=== PATIENT | female | born 1995 | race Caucasian/White ===

== ENCOUNTER 2025-03-25 09:33 | Emergency (ER) | payer MEDICAID, SELFPAY ==
[2025-03-25 09:55] VITALS: BP 127/91; PULSE 56; RESP 16; TEMP 36.2; BMI 28.7
--- NOTE | 2025-03-25 10:07 | ECG_ITS ---
Test Reason : withdrawal Blood Pressure : */* mmHG Vent. Rate : 68 BPM Atrial Rate : 68 BPM P-R Int : 146 ms QRS Dur : 90 ms QT Int : 420 ms P-R-T Axes : 44 24 17 degrees QTcB Int : 446 ms Normal sinus rhythm with sinus arrhythmia Cannot rule out Anterior infarct , age undetermined Abnormal ECG No previous ECGs available Referred By: Wendy Navarrete Electronically Signed By: KALANI ENG MD
--- NOTE | 2025-03-25 10:15 | ED.GENADULT ---
HPI - General Adult General Chief complaint: General Medical Stated complaint: withdrawls Time Seen by Provider: 03/25/25 10:07 Source: patient and old records reviewed Mode of arrival: ambulatory Limitations: no limitations History of Present Illness ED Provider: BRITTON HPI narrative: 29 yo female with PMH of IVDA and prior methadone use but has not been on it in years she notes last injected Tuesday. She wants to start back on MAT therapy. She has chills, body aches, mild nausea. She denies fevers, infections of injection sites, chest pain/dyspnea. No SI. She does not want detox. She was referred to the ED by our addiction medicine provider. complaint: withdrawal Onset (ago): day(s) (2) Radiation: non-radiation Severity: moderate Quality: aching Relieving factors: none Exacerbating factors: movement Associated symptoms: denies other symptoms Treatments prior to arrival: none Related Data Allergies Allergy/AdvReac Type Severity Reaction Status Date / Time Latex, Natural Rubber Allergy Rash Verified 03/25/25 09:56 Review of Systems Review of Systems: Constitutional : No Fever, pos Chills ENT/Mouth : No Ear Pain, No Hoarseness, No sore throat Eyes: No Eye Pain, No Swelling, No Redness, No Foreign Body Cardiovascular : No Chest Pain, No SOB Respiratory : No Cough, No Dyspnea Gastrointestinal : No Nausea, No Vomiting, No Diarrhea, No abdominal Pain Genitourinary : No Dysuria, No Hematuria Musculoskeletal : positive joint pain, pos Myalgias, No Joint Swelling Skin : No Skin lacerations, No rash Neuro : No Weakness, No Numbness, No Loss of Consciousness, No Dizziness, No Headache All other systems reviewed and are negative [facility] Past Medical History Attestation statement: The following information was validated with the patient. Source: old records reviewed Medical History Opiate use Social History Social History (Updated 03/25/25 @ 10:28 by Wendy Navarrete DO) Patient Tobacco Use Status: Never used Tobacco Advance Directives: No Advance Directives Information Provided: Yes Do you have a plan to hurt others: No Plan Physical Exam ED Vital Signs: Vital Signs - 24 hr 03/25/25 09:55 Temperature 97.2 F Pulse Rate 56 Respiratory Rate 16 Blood Pressure 127/91 H BMI result Body Mass Index 28.7 Appearance: Alert. Oriented X3. No acute distress. Eyes: Pupils equal, round and reactive to light. ENT: Pharynx normal. Neck: Normal inspection. Neck supple. CVS: Normal heart rate and rhythm. Pulses normal. Respiratory: No respiratory distress. Breath sounds normal. Abdomen: Soft and nontender. Skin: Skin warm and dry. Normal skin color. Normal skin turgor. Extremities: No lower extremity edema. No calf ttp Neuro: Oriented X 3. No motor deficit. No sensory deficit. CN2-12 intact Medications Administered Discontinued Medications Generic Name Dose Route Start Last Admin Trade Name Johnq PRN Reason Stop Dose Admin Methadone HCl 40 mg 03/25/25 10:07 03/25/25 10:24 Methadone Hcl 20 Mg/2 Ml Oral.Conc PO 03/25/25 10:08 40 mg ONCE ONE Administration Naloxone HCl 8 mg 03/25/25 10:16 03/25/25 10:24 Naloxone Hcl Nasal Take Home 4 Mg Michie NOSTRILALT 03/25/25 10:17 8 mg ONCE ONE Administration Medical Decision Making Medical Decision Making [facility] Narrative: 29 yo female wtih PMH of opiate use disorder here with c/o mild withdrawal and wants to start on methadone. She denies SI and has no medical complaints. She does not want detox. She overall looks well no active vomiting and not significantly restless plan to start methadone after labs and she will follow up with our addiction medicine team. Narcan ordered to go home with. Differential Diagnosis Differential Diagnoses: The differential diagnosis associated with the presentation includes opiate withdrawal Admission/Observation Consideration of admission/observation: Escalation of care including admission/observation considered feels much better stable for DC Consult Healthcare Provider Management of the patient was discussed with: Front Desk Agent Lab Data [facility] Lab Attestation statement: I reviewed the patient's lab results. 03/25/25 10:47 03/25/25 10:47 Labs: Lab Results 03/25/25 Range/Units 10:47 WBC 13.0 H (4.8-10.8) X10*3/uL RBC 4.92 (4.20-5.50) X10*6/uL Hgb 15.0 (12.0-16.0) g/dl Hct 42.7 (37.0-47.0) % MCV 86.8 (80.0-98.0) fL MCH 30.5 (27.0-33.0) pg MCHC 35.1 H (31.0-35.0) g/dl RDW 13.9 (11.0-16.0) % Plt Count 271 (160-400) X10*3/uL MPV 10.2 (9.4-12.3) fL Immature Gran % (Auto) 0.5 H (0.0-0.4) % Neut % (Auto) 84.0 H (45-73) % Lymph % (Auto) 10.5 L (20-40) % [place] % (Auto) 4.5 (2-11) % Eos % (Auto) 0.2 (0-4) % Baso % (Auto) 0.3 (0-2) % Lymph # (Auto) 1.4 (1.2-4.9) X10*3/uL [place] # (Auto) 0.6 (0.1-1.2) X10*3/uL Eos # (Auto) 0.0 (0.0-0.4) X10*3/uL Baso # (Auto) 0.0 (0.0-0.2) X10*3/uL Abs Immat Gran (auto) 0.06 H (0.00-0.03) X10*3/uL Absolute Neuts (auto) 10.9 H (2.0-8.3) x10*3/uL Absolute Nucleated RBC 0.000 (0.0-0.012) X10*3/uL Nucleated RBC % (auto) 0.0 (0.0-0.2) /100WBC Sodium 142 (135-145) mmol/L Potassium 3.6 (3.3-5.1) mmol/L Chloride 111 H (96-108) mmol/L Carbon Dioxide 22 (22-29) mmol/L Anion Gap 13 (12-20) BUN 7 L (9-16) mg/dL Creatinine 0.57 (0.5-1.4) mg/dL Estim Creat Clear Calc 126.8 Estimated GFR > 60 Random Glucose 112 (60-115) mg/dL Calcium 9.3 (8.4-10.2) mg/dL Magnesium 1.9 (1.6-2.6) mg/dL Independent Interpretation I performed an independent interpretation of an: EKG Interpretation: Rate: 68 Rhythm: NSR [place]: normal Normal P waves. Normal DANO. Normal QRS complex. ST T wave : normal no CÉSAR inverted t wave III qTC: 446 prior studies: no acute ischemia The study has been interpreted contemporaneously by me. . External Record Review External record reviewed: Outpatient record Prescription Management I considered prescription management with: Other Discharge Plan Discharge Clinical Impression: Opiate withdrawal Patient Disposition: Home, Self-Care Instructions: Opioid Withdrawal (ED), Opioid Use Disorder (ED) Additional Instructions: GIVEN 40MG METHADONE ON 03/25/25 AT [facility] EMERGENCY DEPARTMENT Opiate use disorder You were seen in our Emergency Department today for treatment of opiate use disorder. You may have been dosed with medication for opiate use disorder (MOUD) in the form of suboxone or methadone. You may experience feeling some withdrawal symptoms and this is normal. The? dose in the Emergency Department is a starting dose and meant to be titrated up once you follow up with a clinic. Please do not feel discouraged, it is a process. The nurse has reviewed with you where to follow up and what information to bring with you, to continue treatment. You also may have been given naloxone (narcan) to take home with you. This medication is used to potentially treat opiate overdose. If you decide you want to stop or cut down on how much you?re using, you can call or walk into our outpatient Addiction Treatment office: [facility] (M-F 9am-5p) [address] [place] [address], [phone] You may have been provided with safer injection?items, please take time to take care of YOU and your health. Use new supplies whenever possible to lessen the chances of infections and other illnesses.? ?If you need more supplies, please go [facility],? [address], [place] you can call or text to coordinate delivery of safer supplies. You were also provided a list of several treatment providers in the area.? If you experience any worsening symptoms you cannot control please return to the ED or call 911. Please follow up at your next appointment. Things to look out for are fevers, chest pain, shortness of breath, severe pain, dizziness, fainting or any other concerns. Print Language: Luxembourgish
[2025-03-25] MEDS: methADONE HCl 20 MG/2 ML ORAL.CONC 40 MG PO (10:24)
[2025-03-25] MEDS: Naloxone HCl Nasal TAKE HOME 4 MG SPRAY 8 MG NOSTRILALT (10:24)
[2025-03-25 10:51] LABS: MANUAL DIFF FLAG NO
[2025-03-25 10:52] LABS: Basophils Percent Auto 0.3 % (0-2); Eosinophils Percent Auto 0.2 % (0-4); Hematocrit 42.7 % (37.0-47.0); Imm Gran Abs Auto 0.06 X10*3/uL (0.00-0.03); Imm Gran Pct Auto 0.5 % (0.0-0.4); Lymphocytes Absolute Auto 1.4 X10*3/uL (1.2-4.9); Lymphocytes Percent Auto 10.5 % (20-40); Mean Corpuscular HGB Conc 35.1 g/dl (31.0-35.0); Mean Corpuscular Hemoglobin 30.5 pg (27.0-33.0); Mean Corpuscular Volume 86.8 fL (80.0-98.0); Mean Platelet Volume 10.2 fL (9.4-12.3); Monocytes Absolute Auto 0.6 X10*3/uL (0.1-1.2); Monocytes Percent Auto 4.5 % (2-11); Neutrophils Absolute Auto 10.9 x10*3/uL (2.0-8.3); Platelet Count 271 X10*3/uL (160-400); Red Blood Count 4.92 X10*6/uL (4.20-5.50); Red Cell Distribution Width 13.9 % (11.0-16.0)
[2025-03-25 11:12] LABS: Anion Gap 13 (12-20); Blood Urea Nitrogen 7 mg/dL (9-16); Calcium 9.3 mg/dL (8.4-10.2); Carbon Dioxide 22 mmol/L (22-29); Chloride 111 mmol/L (96-108); Creatinine Clr Calc Pharmacy 126.8; Estimated Glomerular Filt Rate > 60; Glucose Random 112 mg/dL (60-115); Magnesium 1.9 mg/dL (1.6-2.6); Potassium 3.6 mmol/L (3.3-5.1); Sodium 142 mmol/L (135-145)
[2025-03-25 11:33] VITALS: BP 127/91; PULSE 56; RESP 16; TEMP 36.2; O2SAT 98
[2025-03-25 11:53] LABS: HCG Quantitative < 2 mIU/mL
--- NOTE | 2025-03-25 12:10 | HO.ADDICT_ITS ---
History of Present Illness Date of Service: 03/25/2025 Chief Complaint: withdrawls Reason for Consult: OUD/acute withdrawal Sources of Information: patient interviewed HPI Narrative: Patient is a 29 year old female with history of OUD. She was visiting a patient at [facility], when she reported to this aligner typewriter that she was experiencing opiate withdrawal. T/w then escorted patient to ED for methadone initiation. She appeared diaphoretic and anxious. Reports last use was Tuesday/Tuesday Reports using 2-3 bundles of fentanyl daily Reports history of methadone--over a year ago. Review of Systems Constitutional: Reports as per HPI and Reports body ache(s) Diagnostics Vital Signs (24Hr): Vital Signs - 24 hr 03/25/25 09:55 03/25/25 11:33 Temperature 97.2 F 97.2 F Pulse Rate 56 56 Respiratory Rate 16 16 Blood Pressure 127/91 H 127/91 H Pulse Oximetry 98 BMI result Body Mass Index 28.7 Labs 03/25/25 10:47 03/25/25 10:47 Labs: Laboratory Results - last 48 hr 03/25/25 10:47 WBC 13.0 H RBC 4.92 Hgb 15.0 Hct 42.7 MCV 86.8 MCH 30.5 MCHC 35.1 H RDW 13.9 Plt Count 271 MPV 10.2 Immature Gran % (Auto) 0.5 H Neut % (Auto) 84.0 H Lymph % (Auto) 10.5 L [place] % (Auto) 4.5 Eos % (Auto) 0.2 Baso % (Auto) 0.3 Lymph # (Auto) 1.4 [place] # (Auto) 0.6 Eos # (Auto) 0.0 Baso # (Auto) 0.0 Abs Immat Gran (auto) 0.06 H Absolute Neuts (auto) 10.9 H Absolute Nucleated RBC 0.000 Nucleated RBC % (auto) 0.0 Sodium 142 Potassium 3.6 Chloride 111 H Carbon Dioxide 22 Anion Gap 13 BUN 7 L Creatinine 0.57 Estim Creat Clear Calc 126.8 Estimated GFR > 60 Random Glucose 112 Calcium 9.3 Magnesium 1.9 Beta HCG, Quant < 2 Mental Status Exam Mental Status Exam Level of Consciousness: Awake, Appropriate and Alert Medications Allergies Allergies Allergy/AdvReac Type Severity Reaction Status Date / Time Latex, Natural Rubber Allergy Rash Verified 03/25/25 09:56 Assessment & Plan Assessment & Plan (1) Opioid use disorder, severe, dependence: Status: Acute Code(s): F11.20 - Opioid dependence, uncomplicated Assessment and Plan: * methadone 40mg in ED * last dose letter provided to patient * Referral emailed to [facility] per patient request Total time managing care of this patient today __35__ minutes. PMFSH Past Medical History Medical History Opiate use Social History Social History (Updated 03/25/25 @ 10:28 by Wendy Navarrete DO) Patient Tobacco Use Status: Never used Tobacco Advance Directives: No Advance Directives Information Provided: Yes Do you have a plan to hurt others: No Plan
== END 2025-03-25 11:33 | disposition home or self-care (01) ==
PROVIDERS: Emergency Provider Emergency Medicine
DX: F11.23 Opioid dependence with withdrawal (principal); F19.10 Other psychoactive substance abuse, uncomplicated
CPT/HCPCS: 36415; 80048; 83735; 84702; 85025; 93005; 99283

== ENCOUNTER → 2025-03-25 10:07 | Outpatient (BNV) | payer MEDICAID, SELFPAY | PROVIDERS: Emergency Provider Emergency Medicine; Visit Provider Internal Medicine Cardiovascular Disease | DX: R94.31 Abnormal electrocardiogram [ECG] [EKG] (principal); F19.939 Other psychoactive substance use, unspecified with withdrawal, unspecified | CPT/HCPCS: 93010 ==

== ENCOUNTER → 2025-03-25 10:27 | Outpatient (BNV) | payer MEDICAID, SELFPAY | PROVIDERS: Emergency Provider Emergency Medicine; Visit Provider Nurse Practitioner Psychiatric/Mental Health | DX: F11.20 Opioid dependence, uncomplicated (principal) | CPT/HCPCS: 99282 ==